=== PATIENT | male | born 1975 | race Hispanic/Latino ===

== ENCOUNTER 2017-09-04 21:26 | Emergency (ER) | payer SELFPAY ==
[~2017-09-04 21:26] MED LIST: ISOVUE-370 76%-LOCM 1 ML ONE
[2017-09-04 22:07] LABS: #Eosinphils 0.1 thou/uL (0.0-0.7); #Monocytes 0.6 thou/uL (0.11-0.59); #Neutrophils 5.5 thou/uL (1.40-6.50); %Basophils 0.4 % (0.0-1.0); %Eosinophils 1.5 % (0.0-10.0); %Monocytes 7.7 % (0.0-10.0); Hematocrit 42.2 % (42.0-52.0); Mean Platelet Volume 6.4 fL (7.4-10.4); Red Blood Cell (RBC) Count 4.74 mill/uL (4.70-6.10); White Blood Cell (WBC) Count 7.2 thou/uL (4.8-10.8)
[2017-09-04] MEDS ORDERED: Dexamethasone 4 MG TAB ONE (22:22)
[2017-09-04 22:27] LABS: ALT (SGPT) 27 U/L (8-55); AST (SGOT) 24 U/L (5-34); Alkaline Phosphatase 86 U/L (40-150); Anion Gap 13 mmol/L (10-20); BUN (Urea Nitrogen) 13 mg/dL (8.9-20.6); Bilirubin, Total 0.4 mg/dL (0.2-1.2); CK (CPK) 166 U/L (30-200); Calc. Creatinine Clearance 0 mL/min (70-130); Carbon Dioxide 23 mmol/L (22-29); Chloride 105 mmol/L (98-107); Estimated GFR-MDRD 68; Globulin 3.2 g/dL (2.4-3.5); Lipase 6 U/L (8-78); Protein, Total 7.2 g/dL (6.0-8.3)
[2017-09-04 22:30] LABS: Troponin I Less than 0.010 ng/mL (< 0.028)
--- NOTE | 2017-09-04 22:31 | RAD ---
RADIOGRAPH CHEST 1 VIEW: Date: 09-04-17 Time: 9:36 P.M. HISTORY: 42-year-old male with acute chest pain. COMPARISON: 08-25-15 FINDINGS: Comparison is difficult because the current image is lordotic. There is an apparently new finding of a shelf-like lateral protrusion of the right cardiomediastinal shadow, with sharp borders. This could be due to the lordotic angulation, but further evaluation is recommended. There is magnification of the cardiac shadow. No pulmonary edema or airspace density identified. Lateral costophrenic angles ar e sharp. No large pneumothorax is visualized. IMPRESSION: 1. No acute pulmonary findings. 2. Unusual appearance of right cardiomediastinal border. 3. Standard upright PA and lateral views of the chest recommended when patient's condition permits. MEENU POS: [facility]
--- NOTE | 2017-09-04 23:57 | CT ---
CTA THORAX WITH CONTRAST: (Computed Tomographic Angiography, chest(noncoronary) with contrast material, and image postprocessin g) (PE protocol) DATE: 09-04-17 TIME 10:41 p.m. HISTORY: 42-year-old male with chest pain, dyspnea, and abnormal chest radiograph. TECHNIQUE: IV injection of iodinated contrast: Isovue Scan acquisition timing attempted to coincide with iodinated contrast bolus reaching maximal density in pulmonary arteries. 3D MIP reconstructions. FINDINGS: Unfortunately, the greatest concentration of IV contrast material is in the left subclavian vein, lef t brachiocephalic vein, and superior vena cava. There is relatively poor opacification of the pulmona ry artery and its branches. Furthermore, the images are degraded by a combination of breathing motion artifact and large body habitus. There is no evidence of pulmonary thromboembolism in the pulmonic t runk or the left and right main pulmonary arteries. Beyond that, it is difficult to evaluate for a th romboembolism in the proximal and distal branches of the pulmonary arteries. There is no thoracic aor tic aneurysm or dissection. No airspace density, pleural effusion, or pneumothorax. There are moderat e size circumferential paracardial fat pads. There is also mediastinal lipomatosis which accounts for the shelf-like edge of the right cardiomediastinal border on today's chest radiograph. Scattered mil dly enlarged mediastinal lymph nodes, nonspecific. IMPRESSION: 1. No central pulmonary thromboembolism in the pulmonic trunk or in the left and right main pulmonary arteries. 2. Cannot evaluate for pulmonary thromboembolism in the branches of the pulmonary arteries because of a combination of body habitus, breathing motion, and suboptimal IV contrast bolus timing. 3. Mediastinal lipomatosis. 4. No active pulmonary disease. cyndy POS: [facility]
[2017-09-05] MEDS ORDERED: traMADol HCl 50 MG TAB ONE (00:11)
[2017-09-05] MEDS ORDERED: Ketorolac Tromethamine 30 MG/ML VIAL ONE (00:38)
--- NOTE | 2017-09-17 11:18 | EKG ---
Test Reason : Blood Pressure : / mmHG Vent. Rate : 086 BPM Atrial Rate : 086 BPM P-R Int : 158 ms QRS Dur : 100 ms QT Int : 366 ms P-R-T Axes : 025 015 022 degrees QTc Int : 437 ms Normal sinus rhythm Normal ECG Confirmed by CARLITA AVILA M.D. ([id number]), editor [employer] MEI GARCIA ([id number] on 09/17/2017 11:18:20 AM Referred By: Confirmed By:CARLITA AVLIA M.D.
--- NOTE | 2017-10-01 20:53 | EKG ---
Test Reason : Blood Pressure : / mmHG Vent. Rate : 095 BPM Atrial Rate : 095 BPM P-R Int : 126 ms QRS Dur : 092 ms QT Int : 358 ms P-R-T Axes : 019 018 028 degrees QTc Int : 449 ms Normal sinus rhythm Normal ECG Confirmed by WALKER FRANCISCO MD ([id number]), subeditor MEI GARCIA ([id number]) on 10/01/2017 8:52:21 PM Referred By: Confirmed By:WALKER FRANCISCO MD
== END 2017-09-05 01:22 | disposition home or self-care (01) ==
LOC: ERS 21:26
DX: R07.89 Other chest pain (principal); F17.210 Nicotine dependence, cigarettes, uncomplicated
CPT/HCPCS: 71010; 71275; 80053; 82550; 82553; 83690; 84484; 85025; 93005; 96374; 99406; J1885; J8540

== ENCOUNTER 2017-09-28 21:00 | Emergency (ER) | payer SELFPAY ==
[2017-09-28] MEDS ORDERED: Ketorolac Tromethamine 30 MG/ML VIAL ONE (22:03)
[2017-09-28] MEDS ORDERED: Fentanyl 100 MCG/2 ML VIAL ONE (22:21)
[2017-09-28 22:22] LABS: #Basophils 0.1 thou/uL (0.0-0.2); #Eosinphils 0.5 thou/uL (0.0-0.7); #Lymphocytes 2.3 thou/uL (1.20-3.40); #Monocytes 0.7 thou/uL (0.11-0.59); %Basophils 0.8 % (0.0-1.0); %Eosinophils 4.7 % (0.0-10.0); %Lymphocytes 24.2 % (21.0-51.0); %Monocytes 7.1 % (0.0-10.0); %Neutrophils 63.2 % (42.0-75.0); Hemoglobin 14.5 g/dL (14.0-18.0); Mean Corpuscular HGB CONC 32.8 g/dL (32.0-36.0); Mean Corpuscular Hemoglobin 29.3 pg (27.0-31.0); Mean Corpuscular Volume 89.4 fl (80.0-94.0); Mean Platelet Volume 6.5 fL (7.4-10.4); Platelet Count 460 thou/uL (130-400); RBC Distribution Width 11.8 % (11.5-14.5); Red Blood Cell (RBC) Count 4.95 mill/uL (4.70-6.10); White Blood Cell (WBC) Count 9.5 thou/uL (4.8-10.8)
[2017-09-28 22:33] LABS: ALT (SGPT) 42 U/L (8-55); AST (SGOT) 29 U/L (5-34); Albumin 4.4 g/dL (3.5-5.0); Alkaline Phosphatase 96 U/L (40-150); Anion Gap 13 mmol/L (10-20); BUN (Urea Nitrogen) 16 mg/dL (8.9-20.6); Bilirubin, Total 0.4 mg/dL (0.2-1.2); Calc. Creatinine Clearance 0 mL/min (70-130); Carbon Dioxide 24 mmol/L (22-29); Chloride 105 mmol/L (98-107); Estimated GFR-MDRD 77; Globulin 3.6 g/dL (2.4-3.5); Glucose 105 mg/dL (70-105); Potassium 4.4 mmol/L (3.5-5.1); Sodium 138 mmol/L (136-145)
[2017-09-28 22:42] LABS: CKMB 0.9 ng/mL (0-6.6); Troponin I Less than 0.010 ng/mL (< 0.028)
--- NOTE | 2017-09-28 23:10 | RAD ---
LEFT RIBS THREE VIEWS: History: Shortness of breath, chest pain. FINDINGS/IMPRESSION: No left sided rib fracture is seen. POS: [facility]
--- NOTE | 2017-09-28 23:19 | RAD ---
PORTABLE CHEST ONE VIEW: Date: 09-28-17 Time: 10:38 p.m. History: Shortness of breath, chest pain with inspiration. FINDINGS: Comparison is made with exam of 09-04-17. The heart size is normal. No confluent areas of consolidation, pneumothorax, or pleural effusions are seen. IMPRESSION: No acute process. POS: [facility]
--- NOTE | 2017-09-28 23:37 | CT ---
CT PULMONARY ANGIOGRAM WITH IV CONTRAST AND 3D POST PROCESSING: History: Cough. Left sided chest pain. Shortness of breath. Pain with inspiration. FINDINGS: No filling defects are seen in the pulmonary artery vasculature to suggest pulmonary embolus. There i s no evidence of aneurysm or a dissection of the thoracic aorta. A small left pleural effusion is pre sent. A nondisplaced fracture of the posterolateral aspect of the left 7th rib is noted. No pneumotho races are seen. IMPRESSION: 1. No CT evidence of pulmonary embolism. 2. Small left pleural effusion. 3. Nondisplaced left 7th rib fracture. POS: [facility]
[2017-09-28 23:58] LABS: Bilirubin Negative (Negative); Blood, Urine Negative (Negative); Clarity CLEAR (Clear); Glucose, Urine (Dipstick) Negative (Negative); Leukocyte Negative (Negative); Nitrite Negative (Negative); Protein, Urine (Dipstick) Trace mg/dL (Neg-Trace); Urobilinogen 0.2 mg/dL (0.2-1.0)
[2017-09-29 00:03] LABS: Specific Gravity, Urine Greater than 1.060 (1.002-1.036)
[2017-09-29] MEDS ORDERED: Morphine 4 MG/ML Carpuject ONE (00:27)
== END 2017-09-29 00:40 | disposition home or self-care (01) ==
LOC: ERS 21:00
DX: S22.32XA Fracture of one rib, left side, initial encounter for closed fracture (principal); J90 Pleural effusion, not elsewhere classified; Z79.899 Other long term (current) drug therapy; F17.210 Nicotine dependence, cigarettes, uncomplicated; X58.XXXA Exposure to other specified factors, initial encounter
CPT/HCPCS: 71045; 71275; 80053; 81003; 82553; 83690; 84484; 85025; 93005; 96361; 96374; J1885; J2270; J3010

== ENCOUNTER 2018-05-04 00:46 | Emergency (ER) | payer SELFPAY | END 2018-05-04 01:20 | disposition home or self-care (01) | LOC: ERS 00:46 | DX: L74.0 Miliaria rubra (principal); F17.210 Nicotine dependence, cigarettes, uncomplicated | CPT/HCPCS: 99282 ==

== ENCOUNTER 2020-06-30 17:39 | Emergency (ER) | payer OTHER, SELFPAY ==
[2020-07-01 12:05] LABS: SARS-CoV-2 MS2 Positive; SARS-CoV-2 N Gene Negative; SARS-CoV-2 S Gene Negative; SARS-CoV-2 by NAA Not Detected (NotDetected); SARS-CoV-2 orf1ab Negative
== END 2020-06-30 18:00 | disposition home or self-care (01) ==
LOC: ERS 17:39
DX: Z20.828 Contact with and (suspected) exposure to other viral communicable diseases (principal); F17.210 Nicotine dependence, cigarettes, uncomplicated
CPT/HCPCS: 87635; 99283; U0003

== ENCOUNTER 2022-03-04 11:25 | Emergency (ER) | payer OTHER, SELFPAY | END 2022-03-04 13:27 | disposition home or self-care (01) | LOC: ERS 11:25 | DX: H61.21 Impacted cerumen, right ear (principal); F17.210 Nicotine dependence, cigarettes, uncomplicated | CPT/HCPCS: 99282 ==

== ENCOUNTER 2022-04-01 03:52 | Emergency (ER) | payer SELFPAY ==
[2022-04-01] MEDS ORDERED: Bupivacaine 0.25% 10 ML VIAL ONE (04:07)
[2022-04-01] MEDS ORDERED: Clindamycin 150 MG CAP ONE (04:08)
== END 2022-04-01 04:35 | disposition home or self-care (01) ==
LOC: ERS 03:52
DX: K04.7 Periapical abscess without sinus (principal); F17.210 Nicotine dependence, cigarettes, uncomplicated
CPT/HCPCS: 64400; S0020